=== PATIENT | female | born 1970 | race Caucasian/White ===

== ENCOUNTER 2022-08-23 05:02 | Emergency (ER) | payer MEDICAID ==
[~2022-08-23] VITALS: Ht 157.5 cm; Wt 59.0 kg
[2022-08-23 05:09] VITALS: BP 105/33
== END 2022-08-23 08:37 | disposition left against medical advice (07) ==
LOC: ER 05:02
DX: Z53.21 Procedure and treatment not carried out due to patient leaving prior to being seen by health care provider (principal)